=== PATIENT | female | born 1965 | race Caucasian/White ===

== ENCOUNTER 2017-07-11 05:34 | Emergency (ER) | payer OTHER ==
[~2017-07-11] VITALS: Ht 167.6 cm; Wt 58.0 kg
[2017-07-11 05:35] VITALS: Ht 167.6 cm; Wt 58.0 kg
--- NOTE | 2017-07-11 05:54 | ERD ---
ER Documentation Chief Complaint Chief Complaint BIB [employer] for blood draw. HPI Is a 52-year-old female here for a blood draw with [employer] for possible DUI. Patient denies any complaints. ROS All systems reviewed and are negative except as per history of present illness. Medications Home Meds No Active Prescriptions or Reported Meds Allergies Allergies: Coded Allergies: No Known Allergy (Verified Allergy, Mild, 10/12/08) PMhx/Soc History of Surgery: Yes (C4-C5 FUSION) Anesthesia Reaction: No Hx Miscellaneous Medical Probl: Yes (Insomnia, Chronic neck pain) Hx Alcohol Use: No Hx Substance Use: No Hx Tobacco Use: No Smoking Status: Never smoker Physical Exam Vitals Vital Signs Date Time Temp Pulse Resp B/P Pulse Ox O2 Delivery O2 Flow Rate FiO2 07/11/17 05:35 98.1 72 18 117/62 98 Physical Exam Const: [] Head: Atraumatic Eyes: Normal Conjunctiva ENT: Normal External Ears, Nose and Mouth. Neck: Full range of motion..~ No meningismus. Resp: Clear to auscultation bilaterally Cardio: Regular rate and rhythm, no murmurs Abd: Soft, non tender, non distended. Normal bowel sounds Skin: No petechiae or rashes Back: No midline or flank tenderness Ext: No cyanosis, or edema Neur: Awake and alert Psych: Normal Mood and Affect Procedures/MDM Medical decision-makin-year-old female here for medical clearance for booking. At this point patient is medically cleared Departure Diagnosis: Primary Impression: Encounter for medical clearance for patient hold Condition: Stable Patient Instructions: Assisted Clearance ADOLFO PARISH Jul 11, 2017 05:53
== END 2017-07-11 06:28 | disposition home or self-care (01) ==
LOC: E/R 05:34
DX: Z02.89 Encounter for other administrative examinations (principal)
CPT/HCPCS: 99282